=== PATIENT | male | born 1965 | race Caucasian/White ===

== ENCOUNTER 2016-10-12 15:59 | Inpatient (IN) | payer OTHER ==
[2016-10-12] MEDS ORDERED: CLINDAMYCIN IVPB 300 MG in DEXTROSE 5%-WATER - 48 ML IVPB ONE (18:00)
[2016-10-12] MEDS ORDERED: SODIUM CHLORIDE 1,000 ML IV STA (18:02)
[2016-10-12] MEDS ORDERED: CLINDAMYCIN PHOSPHATE 600 MG/4 ML VIAL ONE (18:05)
--- NOTE | 2016-10-12 18:28 | PDOC ---
History of Present Illness - General History Source: Patient Exam Limitations: No Limitations - History of Present Illness Initial Comments: The patient is a 51 yo M with a no significant PMHx who presents with a nasal abscess for 4 days. The patient states his R nostril felt itchy at first and has been getting progressively more tender. He also endorses associated R sided face pain, R upper tooth pain and R sided headache headache. States its like a line down his face that divides the side that hurt and the side that doesnt. The patient endorses associated fever of 99.9 and R eye socket pain. He also notes his R eye has been tearing up all night. The patient denies facial weakness. The patient states he saw Dr. Youngblood today who sent him here for a possible CT scan. Social Hx: Social ETOH, smoker <Casi Fox - Last Filed: 10/12/16 19:11> <Skyla Joya - Last Filed: 10/13/16 03:49> - General Chief Complaint: Edema Stated Complaint: NASAL ABSCESS (PCP SENT) Time Seen by Provider: 10/12/16 17:01 Past History <Casi Fox - Last Filed: 10/12/16 19:11> - Past Medical History Other medical history: denies - Psycho/Social/Smoking Cessation Hx Suicidal Ideation: No Smoking History: Never smoked Hx Alcohol Use: No Drug/Substance Use Hx: No <Skyla Joya - Last Filed: 10/13/16 03:49> - Past Medical History Allergies/Adverse Reactions: Allergies Allergy/AdvReac Type Severity Reaction Status Date / Time No Known Allergies Allergy Verified 10/12/16 16:04 Home Medications: Ambulatory Orders NK [No Known Home Medication] 10/12/16 Review of Systems - Review of Systems Able to Perform ROS?: Yes Comments:: GENERAL/CONSTITUTIONAL: No fever or chills. No weakness. HEAD, EYES, EARS, NOSE AND THROAT: No change in vision. No ear pain or discharge. No sore throat. R sided facial pain. Nasal boil. Eye socket pain. CARDIOVASCULAR: No chest pain or shortness of breath. RESPIRATORY: No cough, wheezing, or hemoptysis. GASTROINTESTINAL: No nausea, vomiting, diarrhea or constipation. GENITOURINARY: No dysuria, frequency, or change in urination. MUSCULOSKELETAL: No joint or muscle swelling or pain. No neck or back pain. SKIN: No rash NEUROLOGIC: No headache, vertigo, loss of consciousness, or change in strength/ sensation. ENDOCRINE: No increased thirst. No abnormal weight change. HEMATOLOGIC/LYMPHATIC: No anemia, easy bleeding, or history of blood clots. ALLERGIC/IMMUNOLOGIC: No hives or skin allergy. <Casi Fox - Last Filed: 10/12/16 19:11> *Physical Exam - Vital Signs Last Vital Signs Temp Pulse Resp BP Pulse Ox 97.9 F 79 19 144/79 98 10/12/16 16:01 10/12/16 16:01 10/12/16 16:01 10/12/16 16:01 10/12/16 16:01 - Physical Exam Comments: GENERAL: Awake, alert, and fully oriented, in no acute distress HEAD: No signs of trauma. EYES: PERRLA, EOMI, sclera anicteric, conjunctiva clear ENT: 1 cm circular erythematous tender papule on inferior R nare. Mild edema and tenderness of R side of face from forehead to jaw. Palpable submandibular lymphadenopathy. No dental abscesses visualized or palpated. Auricles normal inspection, hearing grossly normal, oropharynx clear without exudates. Moist mucosa NECK: Normal ROM, supple, no lymphadenopathy, JVD, or masses LUNGS: Breath sounds equal, clear to auscultation bilaterally. No wheezes, and no crackles HEART: Regular rate and rhythm, normal S1 and S2, no murmurs, rubs or gallops ABDOMEN: Soft, nontender, normoactive bowel sounds. No guarding, no rebound. No masses EXTREMITIES: Normal range of motion, no edema. No clubbing or cyanosis. No cords, erythema, or tenderness NEUROLOGICAL: Cranial nerves II through XII grossly intact. Normal speech, normal gait SKIN: Warm, Dry, normal turgor, no rashes or lesions noted. <Casi Fox - Last Filed: 10/12/16 19:11> - Vital Signs Last Vital Signs Temp Pulse Resp BP Pulse Ox 97.9 F 79 19 144/79 98 10/12/16 16:01 10/12/16 16:01 10/12/16 16:01 10/12/16 16:01 10/12/16 16:01 <Skyla Joya - Last Filed: 10/13/16 03:49> ED Treatment Course - LABORATORY CBC & Chemistry Diagram: 10/12/16 18:21 10/12/16 18:21 - ADDITIONAL ORDERS Additional order review: Laboratory Results 10/12/16 18:21 Sodium 138 Potassium 4.4 Chloride 105 Carbon Dioxide 26 Anion Gap 7 L BUN 16 Creatinine 1.0 Creat Clearance w eGFR > 60 Random Glucose 86 Calcium 9.4 Total Bilirubin 0.7 AST 19 ALT 21 Alkaline Phosphatase 70 Total Protein 7.5 Albumin 4.0 10/12/16 18:21 RBC 5.08 MCV 90.4 MCHC 33.3 RDW 13.3 MPV 11.9 H Neutrophils % 64.5 Lymphocytes % 26.2 Monocytes % 8.2 Eosinophils % 0.6 Basophils % 0.5 - Medications Given in the ED: ED Medications Discontinued Medications Generic Name Dose Route Start Last Admin Trade Name Freq PRN Reason Stop Dose Admin Clindamycin Phosphate 300 mg/ 50 mls @ 100 mls/hr 10/12/16 18:00 10/12/16 18:21 Dextrose IVPB 10/12/16 18:29 100 mls/hr ONCE ONE Administration Sodium Chloride 1,000 mls @ 1,000 mls/hr 10/12/16 18:02 10/12/16 18:21 Normal Saline - IV 10/12/16 19:01 1,000 mls/hr ASDIR STA Administration <Casi Fox - Last Filed: 10/12/16 19:11> - LABORATORY CBC & Chemistry Diagram: 10/12/16 18:21 10/12/16 18:21 - RADIOLOGY Radiology Studies Ordered: Category Date Time Status FACIAL BONES CT W/O CONTRAST [CT] Stat CT Scan 10/12/16 17:57 Ordered <Skyla Joya - Last Filed: 10/13/16 03:49> Medical Decision Making - Medical Decision Making 10/12/16 18:24 51yo with no PMH presents with erythema, pain and swelling to his nose, with new swelling and pain spreading to his forehead, cheek, and jaw concerning for facial cellulitis. Pt also with low grade fever to 99.9 at home. Will image to evaluate for facial or orbital collections. Spoke with radiology who recommends non con CT of the facial bones. Also spoke with PCP Dr. Olivia Youngblood (pager )who agrees with plan and had the same concerns about facial cellulitis -cbc, bmp -ct facial bones -IV clinda -consider obs admission given rapid spread of infection since Sunday Vital Signs Temp Pulse Resp BP Pulse Ox 97.9 F 79 19 144/79 98 10/12/16 16:01 10/12/16 16:01 10/12/16 16:01 10/12/16 16:01 10/12/16 16:01 10/12/16 18:31 10/12/16 19:25 CT facial bones with R periorbital swelling consistent with pre-septal cellulitis. Report also with R mastoid effusion. On exam, pt with no mastoid tenderness to palpation or induration. Will admit to obs for monitoring and Q8hr clinda to ensure clinical improvement. -admit to hosp -continue clinda 10/13/16 03:48 <Skyla Joya - Last Filed: 10/13/16 03:49> *DC/Admit/Observation/Transfer - Attestations Scribe Attestion: Documentation prepared by Casi Fox, acting as medical laboratory manager for Skyla Joya MD, /DO. <Casi Fox - Last Filed: 10/12/16 19:11> - Discharge Dispostion Admit: Yes - Attestations Physician Attestion: 10/12/16 19:30 I, Dr. Skyla Joya MD, attest that this document has been prepared under my direction and personally reviewed by me in its entirety. I further attest, that it accurately reflects all work, treatment, procedures and medical decision -making performed by me. 10/12/16 20:08 <Skyla Joya - Last Filed: 10/13/16 03:49> Diagnosis at time of Disposition: Cellulitis Qualifiers: Site of cellulitis: face Qualified Code(s): L03.211 - Cellulitis of face - Referrals
[2016-10-12 18:30] LABS: BASOPHIL 0.5 % (0-2.0); EOSINOPHIL 0.6 % (0-4.5); MCH 30.1 pg (25.7-33.7); MCHC 33.3 g/dl (32.0-35.9); MEAN CELL VOLUME 90.4 fl (80-96); MEAN PLT VOLUME 11.9 fl (7.5-11.1); NEUTROPHILS 64.5 % (42.8-82.8); PLATELET COUNT 148 K/MM3 (134-434); RDW 13.3 % (11.9-15.9); WHITE BLOOD COUNT 8.5 K/mm3 (4.0-10.0)
[2016-10-12 18:53] LABS: ANION GAP 7 (8-16); CALCIUM 9.4 mg/dL (8.5-10.1); CO2 26 mmol/L (21-32); GLUCOSE,RANDOM 86 mg/dL (74-106); SGPT/ALT 21 U/L (12-78)
[2016-10-12 18:55] LABS: ALK PHOS 70 U/L (45-117); BILIRUBIN,TOTAL 0.7 mg/dL (0.2-1.0); TOT PROT 7.5 g/dl (6.4-8.2)
[2016-10-12 18:56] LABS: SGOT/AST 19 U/L (15-37)
[2016-10-12] MEDS ORDERED: ONDANSETRON 4 MG/2 ML VIAL IVPB PRN (19:56)
--- NOTE | 2016-10-12 20:23 | HP ---
CHIEF COMPLAINT: R facial swelling and R nasal erythema PCP: HISTORY OF PRESENT ILLNESS: 51 yo M with no significant past medical history c/o R nose edema and abscess for the past 4 days. Pt states four days ago he began to feel what he thought to be a pimple in his nose, but progressively increased in tenderness with digitation. He also reports that 2 days ago he started to develop R nose edema, subjective fevers, and right nostril reddening. He describes the feeling of "a line down the middle of his face" delineating the R side swelling. He was sent here by Dr. Youngblood for a possible CT of the face and sinuses. Currently he reports a headache, some ear discomfort, and increase of tearing of his R eye ( without pus noted) in addition to his other symptoms. Pt denies any history of sinusitis, chills, visual changes, changes in hearing, SOB, difficulty swallowing, sore throat, rhinorrhea. ER course was notable for: (1) IV clindamycin given (2) CT face and sinus -- mild right periorbital soft tissue swelling extending to supraorbital margin. Chronic maxillary sinusitis. Hypertrophy of R nasal cavity. R mastoid effusion. Recent Travel: Denies PAST MEDICAL HISTORY: Denies PAST SURGICAL HISTORY: Denies Social History: Smoking: No Alcohol: Socially Drugs: No Family History: Deferred Allergies No Known Allergies Allergy (Verified 10/12/16 16:04) HOME MEDICATIONS: Home Medications Medication Instructions Recorded NK [No Known Home Medication] 10/12/16 REVIEW OF SYSTEMS CONSTITUTIONAL: Present: Subjective fever Absent: chills, diaphoresis, generalized weakness, malaise, loss of appetite, weight change HEENT: Present: Nasal swelling, Ear discomfort, increased tearing of R eye, R nostril erythema and r nasal cavity abscess Absent: rhinorrhea, throat pain, throat swelling, difficulty swallowing, eye pain, visual changes CARDIOVASCULAR: Absent: chest pain, syncope, palpitations, irregular heart rate, lightheadedness , peripheral edema RESPIRATORY: Absent: cough, shortness of breath, dyspnea with exertion, orthopnea, wheezing, stridor, hemoptysis GASTROINTESTINAL: Absent: abdominal pain, abdominal distension, nausea, vomiting, diarrhea, constipation, melena, hematochezia SKIN: Present: Erythema of R facial aspect Absent: itching, pallor NEUROLOGIC: Present: Headache Absent: focal weakness or paresthesias, dizziness, unsteady gait, seizure, mental status changes, bladder or bowel incontinence PSYCHIATRIC: Absent: anxiety, depression, suicidal or homicidal ideation, hallucinations. PHYSICAL EXAMINATION Vital Signs - 24 hr 10/12/16 10/12/16 16:01 19:36 Temperature 97.9 F 98.3 F Pulse Rate 79 Pulse Rate [ 78 Left Radial] Respiratory 19 18 Rate Blood Pressure 144/79 Blood Pressure 137/94 [Right Arm] O2 Sat by Pulse 98 100 Oximetry (%) GENERAL: Awake, alert, and fully oriented, in no acute distress. HEAD: Normal with no signs of trauma. EYES: Pupils equal, round and reactive to light, extraocular movements intact, sclera anicteric, conjunctiva clear. EARS, NOSE, THROAT: R TM erythema noted without any perforation or purulence. L TM obstructed by cerumen. Nares patent, R nasal cavity abscess with purulence emanating from focal point. R Nostril erythema w/ sharply demarcated borders. R inferior orbital edema without erythema. Oropharynx clear without exudates. Moist mucous membranes. NECK: Normal range of motion, supple without lymphadenopathy, JVD, or masses. LUNGS: Breath sounds equal, clear to auscultation bilaterally. No wheezes, and no crackles. No accessory muscle use. HEART: Regular rate and rhythm, normal S1 and S2 without murmur, rub or gallop. MUSCULOSKELETAL: Normal range of motion at all joints. No bony deformities or tenderness. No CVA tenderness. eXTREMITIES: No edema, peripheral pulses intact throughout NEUROLOGICAL: Normal speech. Peripheral visual espinosa intact. PSYCHIATRIC: Cooperative. Appropriate mood and affect. Laboratory Results - last 24 hr 10/12/16 10/12/16 18:21 18:21 WBC 8.5 RBC 5.08 Hgb 15.3 Hct 46.0 MCV 90.4 MCH 30.1 MCHC 33.3 RDW 13.3 Plt Count 148 MPV 11.9 H Neutrophils % 64.5 Lymphocytes % 26.2 Monocytes % 8.2 Eosinophils % 0.6 Basophils % 0.5 Sodium 138 Potassium 4.4 Chloride 105 Carbon Dioxide 26 Anion Gap 7 L BUN 16 Creatinine 1.0 Creat Clearance w eGFR > 60 Random Glucose 86 Calcium 9.4 Total Bilirubin 0.7 AST 19 ALT 21 Alkaline Phosphatase 70 Total Protein 7.5 Albumin 4.0 ASSESSMENT/PLAN: 51 yo M with R nasal abscess and periorbital edema. CT face and sinuses and IV clindamycin done in ED. Cx swab of nasal abscess taken. 1) R facial cellulitis and R mastoiditis secondary to nasal abscess --AVSS and CBC WNL without leukocytosis --CT: mild right periorbital soft tissue swelling extending to supraorbital margin. Chronic maxillary sinusitis. Hypertrophy of R nasal cavity. R mastoid effusion. --Culture of abscess taken; will f/u --Clindamycin 300mg q6 IV --PRN Tylenol 650mg PO on board if fever develops FEN: Fluids: NS with IV Clindamycin PB Electrolytes: No electrolyte abnormalities at this time Nutrition: Full diet Dispo: Given CT showing R mastoiditis and periorbital soft tissue edema will place in OBS Visit type - Emergency Visit Emergency Visit: Yes Care time: The patient presented to the Emergency Department on the above date and was hospitalized for further evaluation of their emergent condition. - New Patient This patient is new to me today: Yes Date on this admission: 10/12/16 - Critical Care Critical Care patient: No
--- NOTE | 2016-10-12 20:49 | PN ---
Teaching Attending Note Name of Resident: Gaurav Anaya ATTENDING PHYSICIAN STATEMENT I saw and evaluated the patient. I reviewed the resident's note and discussed the case with the resident. I agree with the resident's findings and plan as documented. SUBJECTIVE: 51 y/o Male presented to ED c/o right nare swelling since Sunday with pain periorbitally and purulent drainage from bump in his nose. Denies fever, chills , headache, h/o siniusitis or DM2. OBJECTIVE: GEn: Afebrile, in NAD, A&Ox3 HEENT: right nare with erythema at distal aspect and internal mucosa with purulent drainage from abcess. no palpable orbital edema. tenderness behind right ear lobe over mastoid process. Normal oral mucosa. CVS: RRR Lungs: CTA Abd: Soft, NT, BS+ Ext: nl pulses, nl ROM CBCD WBC 8.5 K/mm3 (4.0-10.0) 10/12/16 18:21 RBC 5.08 M/mm3 (4.00-5.60) 10/12/16 18:21 Hgb 15.3 GM/dL (11.7-16.9) 10/12/16 18:21 Hct 46.0 % (35.4-49) 10/12/16 18:21 MCV 90.4 fl (80-96) 10/12/16 18:21 MCHC 33.3 g/dl (32.0-35.9) 10/12/16 18:21 RDW 13.3 % (11.9-15.9) 10/12/16 18:21 Plt Count 148 K/MM3 (134-434) 10/12/16 18:21 MPV 11.9 fl (7.5-11.1) H 10/12/16 18:21 CMP Sodium 138 mmol/L (136-145) 10/12/16 18:21 Potassium 4.4 mmol/L (3.5-5.1) 10/12/16 18:21 Chloride 105 mmol/L (98-107) 10/12/16 18:21 Carbon Dioxide 26 mmol/L (21-32) 10/12/16 18:21 Anion Gap 7 (8-16) L 10/12/16 18:21 BUN 16 mg/dL (7-18) 10/12/16 18:21 Creatinine 1.0 mg/dL (0.7-1.3) 10/12/16 18:21 Creat Clearance w eGFR > 60 (>60) 10/12/16 18:21 Random Glucose 86 mg/dL (74-106) 10/12/16 18:21 Calcium 9.4 mg/dL (8.5-10.1) 10/12/16 18:21 Total Bilirubin 0.7 mg/dL (0.2-1.0) 10/12/16 18:21 AST 19 U/L (15-37) 10/12/16 18:21 ALT 21 U/L (12-78) 10/12/16 18:21 Alkaline Phosphatase 70 U/L (45-117) 10/12/16 18:21 Total Protein 7.5 g/dl (6.4-8.2) 10/12/16 18:21 Albumin 4.0 g/dl (3.4-5.0) 10/12/16 18:21 CT head: periobital soft tissue swelling and right mastoiditis. ASSESSMENT AND PLAN: Nasal abcess and cellulitis- Clindamycin 300mg IVPB Q6h, Tylenol PRN for pain, ENT consult in am, follow wound cultures, and repeat CBC in AM. Get HgbA1c.
[2016-10-12] MEDS: CLINDAMYCIN 300 MG PREMIX IVPB 50 ML IVPB SCH (21:09)
[2016-10-12 23:22] VITALS: BMI 28.7
[2016-10-12] MEDS ORDERED: PT OWN MED DRAWER 7, Y5N ONE (23:42)
[2016-10-13] MEDS ORDERED: PT OWN MED DRAWER 7, Y5N ONE (02:31)
[2016-10-13] MEDS: ACETAMINOPHEN 325 MG TABLET (FP) PO PRN ×3 (02:33→17:34)
[2016-10-13] MEDS: CLINDAMYCIN 300 MG PREMIX IVPB 50 ML IVPB SCH (02:49)
--- NOTE | 2016-10-13 07:47 | PN ---
Physical Exam: SUBJECTIVE: Patient seen and examined sitting on edge of bed. Right-sided face pain. OBJECTIVE: Vital Signs Period Temp Pulse Resp BP Sys/Galo Pulse Ox Last 24 Hr 97.8 F-98.4 F 70-94 18-18 111-155/48-97 96-97 GENERAL: The patient is awake, alert, and fully oriented, in mild distress secondary to pain. HEAD: Normal with no signs of trauma. EYES: tearing from right eye ENT: Abscess right nare, interior nare appears pus-filled, exquisitely tender NECK: Trachea midline, full range of motion, supple. LUNGS: Breath sounds equal, clear to auscultation bilaterally, no wheezes, no crackles, no accessory muscle use. HEART: Regular rate and rhythm, S1, S2 without murmur, rub or gallop. ABDOMEN: Soft, nontender, nondistended, normoactive bowel sounds, no guarding, no rebound EXTREMITIES: 2+ pulses, warm, well-perfused, no edema. NEUROLOGICAL: Cranial nerves II through XII grossly intact. Normal speech, gait not observed. Current Medications Generic Name Dose Route Start Last Admin Trade Name Freq PRN Reason Stop Dose Admin Acetaminophen 650 mg 10/12/16 19:56 10/13/16 11:28 Tylenol - PO 650 mg Q4H PRN Administration FEVER OR PAIN Acetaminophen 650 mg 10/13/16 11:23 Tylenol - PO 10/13/16 11:24 ONCE STA Vancomycin HCl 1,500 mg/ 500 mls @ 250 mls/hr 10/13/16 10:00 10/13/16 11:28 Dextrose IVPB 250 mls/hr BID MICHOACANO Administration Protocol Ondansetron HCl 4 mg 10/12/16 19:56 Zofran Injection IVPB Q6H PRN NAUSEA ASSESSMENT/PLAN 51 year-old male with no significant PMH admitted for nasal cavity abscess, right facial cellulities, and right mastoiditis. Right facial cellulitis and Right mastoiditis secondary to nasal abscess --afebrile, no leukocytosis --CT: mild right periorbital soft tissue swelling extending to supraorbital margin; chronic maxillary sinusitis; hypertrophy of right nasal cavity; right mastoid effusion --Culture of abscess taken --Clindamycin IV and Vanc --PRN Tylenol --ID following --ENT consult for abscess drainage FEN: Fluids: PO intake adequate Electrolytes: replete as indicated Nutrition: regular diet Dispo: continues to require inpatient care. Full code. Visit type - Emergency Visit Emergency Visit: Yes ED Registration Date: 10/13/16 Care time: The patient presented to the Emergency Department on the above date and was hospitalized for further evaluation of their emergent condition. - New Patient This patient is new to me today: Yes Date on this admission: 10/13/16 - Critical Care Critical Care patient: No
--- NOTE | 2016-10-13 08:26 | PN ---
Progress Note, Physician Chief Complaint: ID Full note dictated - Current Medication List Current Medications: Active Medications Acetaminophen (Tylenol -) 650 mg PO Q4H PRN PRN Reason: FEVER OR PAIN Last Admin: 10/13/16 02:33 Dose: 650 mg Clindamycin Phosphate (Cleocin 300 Mg Premix Ivpb) 50 mls @ 100 mls/hr IVPB Q6H -IV MICHOACANO Last Admin: 10/13/16 02:49 Dose: 100 mls/hr Ondansetron HCl (Zofran Injection) 4 mg IVPB Q6H PRN PRN Reason: NAUSEA - Objective Vital Signs: Vital Signs Temperature 97.8 F 10/13/16 05:54 Pulse Rate 70 10/13/16 05:54 Respiratory Rate 18 10/13/16 05:54 Blood Pressure 111/48 10/13/16 05:54 O2 Sat by Pulse Oximetry (%) 97 10/13/16 03:45 Problem List - Problems (1) Facial cellulitis Code(s): L03.211 - CELLULITIS OF FACE Assessment/Plan Microbiology Laboratory Tests 10/12/16 18:21 WBC 8.5 Hgb 15.3 Plt Count 148 Assessment Facial cellultis nose and malar area Drainage inside the nose Plan Vancomycin 1.5 gr q 12H ENT evaluation ? drainaage Warm compresses Jennifer STAFFORD
--- NOTE | 2016-10-13 09:11 | CONS ---
DATE OF CONSULTATION: DATE OF DICTATION: 10/13/2016 HISTORY OF PRESENT ILLNESS: This is a 51-year-old white male who was admitted with the chief complaint of right lateral and inner naris tenderness with drainage for 4 days. He was unclear as to why or how this may have started. He noted increasing tenderness on the inside of his nose. He may have had low-grade fever but denied any chills. He was referred by his primary doctor for a CT scan of the face. He is not diabetic and denies prior medical illness. He was given clindamycin in the emergency room. A CT scan of the sinus showed mild right periorbital soft tissue swelling extending to the supraorbital margin, chronic maxillary sinusitis was seen, and a right mastoid effusion. PAST MEDICAL HISTORY: Negative. MEDICATIONS: None. SOCIAL HISTORY: Nonsmoker. Works in the construction industry. No travel. No pets. No unusual hobbies. No drug use. HIV status unknown. FAMILY HISTORY: Reviewed and noncontributory. REVIEW OF SYSTEMS:Respiratory: No cough or shortness of breath. Cardiac: No chest pain, palpitations, history of murmur. Gastrointestinal: No nausea, vomiting, diarrhea, or weight loss. Genitourinary: No dysuria, hematuria. PHYSICAL EXAMINATION:General: He was a well-nourished appearing male in no acute distress. Vital Signs: Temperature 97.8, pulse 70, blood pressure 111/48, respirations 18. Neck: Supple. Lungs: Clear to P and A. Heart: S1, S2, regular rhythm. Abdomen: Soft, nontender, without organomegaly. Extremities: Without clubbing, cyanosis, or edema. HEENT: Revealed swelling of the right naris extending into the right malar area with tenderness and possible fluctuance. On the inside of the nose, I could see an open draining sore. LABORATORY DATA: Chemistries and CBC within normal limits with the exception of a mildly depressed platelet count of 148. ASSESSMENT: Right facial cellulitis involving the right naris and extending to the inside of his nose with some drainage seen. RECOMMENDATIONS: A wound culture has been obtained. He will be empirically treated with vancomycin 1.5 g q.12, hot compresses applied to the face, and consultation with ENT for possible I & D prior to being discharged. KEYONNA AZAR M.D. [id number]
[2016-10-13] MEDS ORDERED: ACETAMINOPHEN 325 MG TABLET (FP) PO STA (11:23)
[2016-10-13] MEDS: VANCOMYCIN 1,500 MG in DEXTROSE 5%-WATER - 500 ML IVPB SCH ×2 (11:28→21:59)
--- NOTE | 2016-10-13 18:18 | CON.ENT ---
Consult Consult Specialty:: ENT Referred by:: Dr. Rodriguez Reason for Consultation:: facial cellulitis - History of Present Illness Chief Complaint: nasal pain and swelling History of Present Illness: 51 yo M in good health 5 days ago noted irritation in right nostril 3 days ago noted some swelling and pain, worsened presented to ER dx facial cellulitis, CT scan shows no collection gram stain shows staph on Vancomycin notes improvement in symptoms with IV antibiotics denies prior nasal allergies or sinus infections - History Source History Provided By: Patient, Medical Record Limitations to Obtaining History: No Limitations - Alcohol/Substance Use Hx Alcohol Use: No - Smoking History Smoking history: Never smoked Home Medications - Allergies Allergies/Adverse Reactions: Allergies Allergy/AdvReac Type Severity Reaction Status Date / Time No Known Allergies Allergy Verified 10/12/16 16:04 - Home Medications Home Medications: Ambulatory Orders NK [No Known Home Medication] 10/12/16 Family Disease History - Family Disease History Family History: Unremarkable Physical Exam-ENT Vital Signs: Vital Signs Temperature 98.2 F 10/13/16 13:34 Pulse Rate 75 10/13/16 13:34 Respiratory Rate 20 10/13/16 13:34 Blood Pressure 117/77 10/13/16 13:34 O2 Sat by Pulse Oximetry (%) 97 10/13/16 03:45 Constitutional: Yes: Well Nourished, No Distress, Calm Head: Yes: WNL Face: Yes: Other (swelling right, sl tender right cheek, +external nasal swelling) Eyes: Yes: WNL Nose: Yes: Other (external +swelling, tenderness right nasal ala, nostril + vestibular swelling with scab - uncapped, sl bleeding and pus, endoscopy: mild deviation of septum, no polyps, inferior turbinate hypertrophy, middle turbinates and meati WNL, superior turbinates and meati, sphenoethmoid recesses not visible) Nasal Passage: Yes: WNL Oral/Pharynx: Yes: WNL Outer Ear: Yes: WNL Ear Canal: Yes: WNL Tympanic Membrane: Yes: WNL Neck: Yes: WNL Respiratory: Yes: WNL Imaging - Results Cat Scan: Report Reviewed, Image Reviewed Problem List - Problems (1) Facial cellulitis Assessment/Plan: onset 3 days ago after right nasal irritation in nostril, suspect nasal vestibulitis leading to nasal cellulitis staph on gram stain agree with antistaphylococcal antibiotics as ordered local heat elevate head of bed additional chronic sinusitis found on CT scan continue antibiotics nasal mupirocin ointment Code(s): L03.211 - CELLULITIS OF FACE
[2016-10-13] MEDS: MUPIROCIN 2% TOPICAL OINTMENT 22 GM TUBE TP SCH (21:59)
[2016-10-14] MEDS: MUPIROCIN 2% TOPICAL OINTMENT 22 GM TUBE TP SCH (06:44)
[2016-10-14 07:43] LABS: BASOPHIL 0.4 % (0-2.0); EOSINOPHIL 1.6 % (0-4.5); MCH 30.1 pg (25.7-33.7); MCHC 33.4 g/dl (32.0-35.9); MEAN PLT VOLUME 11.9 fl (7.5-11.1); NEUTROPHILS 59.8 % (42.8-82.8); PLATELET COUNT 142 K/MM3 (134-434); RDW 13.4 % (11.9-15.9); WHITE BLOOD COUNT 7.3 K/mm3 (4.0-10.0)
[2016-10-14] MEDS: VANCOMYCIN 1,500 MG in DEXTROSE 5%-WATER - 500 ML IVPB SCH (09:24)
--- NOTE | 2016-10-14 09:29 | PN ---
Progress Note (short form) - Note Progress Note: ID Offers no complaints Vancomycin Seen by ENT Selected Entries 10/13/16 10/14/16 18:00 06:00 Temperature 98.1 F Pulse Rate 77 Respiratory 20 Rate Blood Pressure 112/60 Nares less swollen less inflammed starting to drain Microbiology 10/12/16 20:15 Nose Gram Stain - Final Laboratory Tests 10/12/16 10/14/16 18:21 06:00 WBC 7.3 Hgb 15.4 Hct 46.1 Plt Count 142 BUN 16 Creatinine 1.0 Assessment Cellulitis with abscess staph likely Plan Can discharge Oral clindamycin 450mg tid 5 days Continue with warm soaks Jennifer STAFFORD Problem List - Problems (1) Facial cellulitis Code(s): L03.211 - CELLULITIS OF FACE
--- NOTE | 2016-10-14 11:22 | DS ---
Physical Exam: SUBJECTIVE: Patient seen and examined OBJECTIVE: Vital Signs Period Temp Pulse Resp BP Sys/Galo Pulse Ox Last 24 Hr 98.1 F-98.2 F 75-78 16-20 112-144/60-77 97-97 PHYSICAL EXAM GENERAL: The patient is awake, alert, and fully oriented, in no acute distress. HEAD: Normal with no signs of trauma. EYES: PERRL, extraocular movements intact, sclera anicteric, conjunctiva clear. ENT: Ears normal, nares patent, oropharynx clear without exudates, moist mucous membranes. NECK: Trachea midline, full range of motion, supple. LUNGS: Breath sounds equal, clear to auscultation bilaterally, no wheezes, no crackles, no accessory muscle use. HEART: Regular rate and rhythm, S1, S2 without murmur, rub or gallop. ABDOMEN: Soft, nontender, nondistended, normoactive bowel sounds, no guarding, no rebound, no hepatosplenomegaly, no masses. EXTREMITIES: 2+ pulses, warm, well-perfused, no edema. NEUROLOGICAL: Cranial nerves II through XII grossly intact. Normal speech, gait not observed. PSYCH: Normal mood, normal affect. SKIN: Warm, dry, normal turgor, no rashes or lesions noted. LABS Laboratory Results - last 24 hr 10/14/16 06:00 WBC 7.3 RBC 5.12 Hgb 15.4 Hct 46.1 MCV 90.0 MCH 30.1 MCHC 33.4 RDW 13.4 Plt Count 142 MPV 11.9 H Neutrophils % 59.8 Lymphocytes % 28.2 Monocytes % 10.0 Eosinophils % 1.6 D Basophils % 0.4 HOSPITAL COURSE: Date of Admission:10/13/16 Date of Discharge: 10/14/16 Discharge Summary Reason For Visit: CELLULITIS Current Active Problems Cellulitis (Acute) Facial cellulitis (Acute) Condition: Improved - Instructions Diet, Activity, Other Instructions: A prescription has been sent to your pharmacy for clindamycin. Take this medication as directed and be sure to finish all the medication. You may want to follow up with two physicians who saw you in the hospital: Dr. Maxwell Rodriguez (infectious disease) and Dr. Gaurav Ugarte (ENT). Their contact information is enclosed in this discharge packet. Return to the emergency department for any new or worsening symptoms. Referrals: Maxwell Rodriguez MD [Staff Physician] - 1 Week Olivia Youngblood MD [Primary Care Provider] - Gaurav Ugarte MD [Staff Physician] - 1 Week Disposition: HOME - Home Medications Comprehensive Discharge Medication List: Ambulatory Orders Clindamycin [Cleocin -] 450 mg PO TID #45 capsule 10/14/16
[2016-10-14 13:02] VITALS: BP 113/67; PULSE 80; TEMP 98.6
== END 2016-10-14 14:32 | disposition home or self-care (01) | DRG 603 ==
LOC: JER 15:59 → JERBED 20:08 → J7W 23:08 → OBSVTOIN 10-13 11:10
PROVIDERS: ADMIT Internal Medicine; ATTEND Nurse Practitioner Acute Care
DX: L03.211 Cellulitis of face (principal); J32.0 Chronic maxillary sinusitis; H70.891 Other mastoiditis and related conditions, right ear; H61.22 Impacted cerumen, left ear
CPT/HCPCS: 36415; 70486-TC; 80053; 85025; 87070; 87186; 87205; 99285-25; G0378

== ENCOUNTER 2016-10-23 03:46 | Emergency (ER) | payer OTHER ==
[2016-10-23 04:44] VITALS: TEMP 97.8; BMI 28.7
--- NOTE | 2016-10-23 05:03 | PDOC ---
History of Present Illness - General History Source: Patient Exam Limitations: No Limitations - History of Present Illness Initial Comments: 10/23/16 05:10 The patient is a 51 year old male, with no significant past medical history, who presents to the emergency department with back pain prior to arrival. The patient describes the back pain as diffuse, constant, 10/10 in severity, and worse while sitting. The patient reports he experienced similar symptoms one day ago at night, however, the symptoms resolved by morning. The patient reports he recently visited [facility] for a Staph Infection approx. one week ago and was prescribed clindamycin. Patient denies numbness, loss of sensation, weakness. He denies any recent nausea, vomit, diarrhea or constipation. He denies any recent chest pain or shortness of breath. He denies any recent fevers, chills, headache or dizziness. He denies any recent dysuria, frequency, urgency or hematuria. Allergies: NKA Past surgical history: None reported. <Israel Guillermo - Last Filed: 10/23/16 05:46> <Patrica Rashid - Last Filed: 10/30/16 17:21> - General Chief Complaint: Pain Stated Complaint: BACK PAIN Time Seen by Provider: 10/23/16 04:49 Past History <Israel Guillermo - Last Filed: 10/23/16 05:46> - Past Medical History Other medical history: Pt denies - Psycho/Social/Smoking Cessation Hx Suicidal Ideation: No Smoking History: Never smoked Number of Cigarettes Smoked Daily: 10 Information on smoking cessation initiated: No Hx Alcohol Use: No Drug/Substance Use Hx: No Substance Use Type: None Hx Substance Use Treatment: No <Patrica Rashid - Last Filed: 10/30/16 17:21> - Past Medical History Allergies/Adverse Reactions: Allergies Allergy/AdvReac Type Severity Reaction Status Date / Time No Known Allergies Allergy Verified 10/23/16 04:40 Home Medications: Ambulatory Orders Clindamycin [Cleocin -] 450 mg PO TID #45 capsule 10/14/16 Review of Systems - Review of Systems Able to Perform ROS?: Yes Comments:: 10/23/16 05:12 GENERAL/CONSTITUTIONAL: No fever or chills. No weakness. HEAD, EYES, EARS, NOSE AND THROAT: No change in vision. No ear pain or discharge. No sore throat. CARDIOVASCULAR: No chest pain or shortness of breath. RESPIRATORY: No cough, wheezing, or hemoptysis. GASTROINTESTINAL: No nausea, vomiting, diarrhea or constipation. GENITOURINARY: No dysuria, frequency, or change in urination. MUSCULOSKELETAL: +Back Pain. No joint or muscle swelling or pain. SKIN: No rash NEUROLOGIC: No headache, vertigo, loss of consciousness, or change in strength/ sensation. ENDOCRINE: No increased thirst. No abnormal weight change. HEMATOLOGIC/LYMPHATIC: No anemia, easy bleeding, or history of blood clots. ALLERGIC/IMMUNOLOGIC: No hives or skin allergy. <Israel Guillermo - Last Filed: 10/23/16 05:46> *Physical Exam - Vital Signs Last Vital Signs Temp Pulse Resp BP Pulse Ox 97.8 F 74 18 128/87 99 10/23/16 04:41 10/23/16 04:41 10/23/16 04:41 10/23/16 04:41 10/23/16 04:41 - Physical Exam Comments: 10/23/16 05:12 GENERAL: +Appears uncomfortable. Awake, alert, and fully oriented. HEAD: No signs of trauma EYES: PERRLA, EOMI, sclera anicteric, conjunctiva clear ENT: Auricles normal inspection, hearing grossly normal, nares patent, oropharynx clear without exudates. Moist mucosa NECK: Normal ROM, supple, no lymphadenopathy, JVD, or masses LUNGS: Breath sounds equal, clear to auscultation bilaterally. No wheezes, and no crackles HEART: Regular rate and rhythm, normal S1 and S2, no murmurs, rubs or gallops ABDOMEN: Soft, nontender, normoactive bowel sounds. No guarding, no rebound. No masses EXTREMITIES: +Right anterior thigh with large healing ecchymosis tender to palpation. Normal range of motion, no edema. No clubbing or cyanosis. No cords, erythema. NEUROLOGICAL: Cranial nerves II through XII grossly intact. Normal speech, normal gait SKIN: Warm, Dry, normal turgor, no rashes or lesions noted. Back: +CVA tenderness bilaterally. <Israel Guillermo - Last Filed: 10/23/16 05:46> - Vital Signs Last Vital Signs Temp Pulse Resp BP Pulse Ox 97.8 F 74 18 128/87 99 10/23/16 04:41 10/23/16 04:41 10/23/16 04:41 10/23/16 04:41 10/23/16 04:41 <Patrica Rashid - Last Filed: 10/30/16 17:21> ED Treatment Course - LABORATORY CBC & Chemistry Diagram: 10/23/16 05:20 10/23/16 05:20 <Israel Guillermo - Last Filed: 10/23/16 05:46> - LABORATORY CBC & Chemistry Diagram: 10/23/16 05:20 10/23/16 05:20 <Patrica Rashid - Last Filed: 10/30/16 17:21> Medical Decision Making - Medical Decision Making Pt presents with B/L low back pain, unable to find a comfortable position on initial evaluation. He was concerned it was related to recent treatment for cellulitis, as he was called back earlier today to have his antibiotic changed. However, the symptoms of the cellulitis have improved, he has no facial rash or swelling, and there is no anatomic connection to the location of the pain. Would consider that either this is musculoskeletal in nature or is a kidney stone. Will obtain imaging, labs, UA. <Patrica Rashid - Last Filed: 10/30/16 17:21> *DC/Admit/Observation/Transfer - Attestations Scribe Attestion: 10/23/16 05:32 Documentation prepared by Israel Guillermo, acting as medical assistant per diem for Patrica Rashid MD. <Israel Guillermo - Last Filed: 10/23/16 05:46> <Patrica Rashid - Last Filed: 10/30/16 17:21> Diagnosis at time of Disposition: Low back strain - Patient Instructions Printed Discharge Instructions: DI for Back Strain or Sprain Additional Instructions: Thank you for trusting us with your health care today. Often in the emergency department we do not find the exact cause of a problem but focus on ruling out serious problems. The lab work and imaging we performed today did not show anything that was concerning. However, it is important that you follow up with a primary care physician for a more complete workup than we are able to do in the emergency department. To find a PCP you can call your insurance company or you can call our project management professional doctor, Dr. Pinto at ([phone]). As we discussed, you can take over the counter ibuprofen for the pain. If you develop any concerning signs including fever, confusion, headache that will not resolve with medication or significantly worsening back and neck pain, please return to the emergency department or call 911 immediately.
[2016-10-23] MEDS ORDERED: SODIUM CHLORIDE 1,000 ML IV STA (05:04)
[2016-10-23] MEDS ORDERED: KETOROLAC TROMETHAMINE 30 MG/1 ML VIAL IVPUSH ONE (05:04)
[2016-10-23] MEDS ORDERED: KETOROLAC TROMETHAMINE 30 MG/1 ML VIAL ONE (05:12)
[2016-10-23 05:31] LABS: BASOPHIL 0.4 % (0-2.0); EOSINOPHIL 1.1 % (0-4.5); MCH 30.6 pg (25.7-33.7); MCHC 33.7 g/dl (32.0-35.9); MEAN CELL VOLUME 90.8 fl (80-96); MEAN PLT VOLUME 12.7 fl (7.5-11.1); NEUTROPHILS 56.6 % (42.8-82.8); PLATELET COUNT 153 K/MM3 (134-434); RDW 13.1 % (11.9-15.9); WHITE BLOOD COUNT 6.4 K/mm3 (4.0-10.0)
[2016-10-23 05:54] LABS: ALBUMIN 4.1 g/dl (3.4-5.0); ANION GAP 6 (8-16); BILIRUBIN,TOTAL 0.4 mg/dL (0.2-1.0); CALCIUM 9.6 mg/dL (8.5-10.1); CO2 27 mmol/L (21-32); GLUCOSE,RANDOM 99 mg/dL (74-106); SGOT/AST 16 U/L (15-37); SGPT/ALT 30 U/L (12-78); TOT PROT 7.3 g/dl (6.4-8.2)
[2016-10-23 05:55] LABS: ALK PHOS 72 U/L (45-117)
[2016-10-23 07:44] LABS: URINE APPEARANCE CLEAR; URINE BILIRUBIN NEGATIVE (NEGATIVE); URINE BLOOD NEGATIVE (NEGATIVE); URINE COLOR LT. YELLOW; URINE GLUCOSE (UA) NEGATIVE (NEGATIVE); URINE KETONE NEGATIVE (NEGATIVE); URINE LEUK ESTERASE NEGATIVE (NEGATIVE); URINE NITRITE NEGATIVE (NEGATIVE); URINE PROTEIN NEGATIVE (NEGATIVE); URINE UROBILINOGEN 0.2 mg/dL (0.2-1.0)
--- NOTE | 2016-10-23 07:46 | PDOC ---
*Physical Exam - Vital Signs Last Vital Signs Temp Pulse Resp BP Pulse Ox 97.8 F 74 18 128/87 99 10/23/16 04:41 10/23/16 04:41 10/23/16 04:41 10/23/16 04:41 10/23/16 04:41 - Physical Exam General Appearance: Yes: Nourished, Appropriately Dressed, Apparent Distress HEENT: positive: EOMI, Normal ENT Inspection, Other (Small bump on right external nare, no surrounding erythema, turbinates pink, moist and non edematous ). negative: Nasal Congestion, Rhinorrhea Neck: positive: Supple. negative: Lymphadenopathy (R), Lymphadenopathy (L) Respiratory/Chest: positive: Lungs Clear, Normal Breath Sounds. negative: Respiratory Distress, Rales, Rhonchi, Wheezing Cardiovascular: positive: Regular Rhythm, Regular Rate Gastrointestinal/Abdominal: positive: Normal Bowel Sounds, Flat, Soft. negative : Tender, Distended Musculoskeletal: positive: Normal Inspection, Vertebral Tenderness (When bending , not on palpation) Extremity: positive: Normal Inspection, Normal Range of Motion Integumentary: positive: Ecchymosis (Healing abrasion/ecchymosis to right medial thigh ([id number]) and left posterior thigh ([id number]), ecchimosis to right AC consistent with old IV) Neurologic: positive: loan teller II-XII NML intact, Fully Oriented, Alert, Normal Mood/ Affect, Normal Response, Motor Strength 5/5 ED Treatment Course - LABORATORY CBC & Chemistry Diagram: 10/23/16 05:20 10/23/16 05:20 - ADDITIONAL ORDERS Additional order review: Laboratory Results 10/23/16 05:20 Sodium 141 Potassium 4.5 Chloride 108 H Carbon Dioxide 27 Anion Gap 6 L BUN 18 Creatinine 1.0 Creat Clearance w eGFR > 60 Random Glucose 99 Calcium 9.6 Total Bilirubin 0.4 D AST 16 ALT 30 D Alkaline Phosphatase 72 Total Protein 7.3 Albumin 4.1 10/23/16 05:20 RBC 4.96 MCV 90.8 MCHC 33.7 RDW 13.1 MPV 12.7 H Neutrophils % 56.6 Lymphocytes % 32.7 Monocytes % 9.2 Eosinophils % 1.1 Basophils % 0.4 - Medications Given in the ED: ED Medications Discontinued Medications Generic Name Dose Route Start Last Admin Trade Name Freq PRN Reason Stop Dose Admin Sodium Chloride 1,000 mls @ 1,000 mls/hr 10/23/16 05:04 10/23/16 05:26 Normal Saline - IV 10/23/16 06:03 1,000 mls/hr ASDIR STA Administration Ketorolac Tromethamine 30 mg 10/23/16 05:04 10/23/16 05:26 Toradol Injection - IVPUSH 10/23/16 05:05 30 mg ONCE ONE Administration Progress Note - Progress Note Progress Note: Patient is a stable 51 year old male sign-out from Dr. Rashid who is presenting with back pain, headache and a stiff neck of one day. Patient was recently treated in the hospital for cellulites to the right face and discharged on abx that was changed after sensitivities from cultures returned. During that time, patient had developed a low back pain while sleeping and was concerned this may be related. Patient denies history of back pain, trauma or any known inciting incident. Also denies fever, chills, congestion and runny nose but endorses an associated headache and neck stiffness. Patient found to have varicose veins on exam Pending: UA and doppler Medical Decision Making - Medical Decision Making 51 yo male with recent history of facial cellulitis presenting with headache, neck and back pain and bruising to legs. Ddx includes but is not limited to sinus infection/abscess, back strain/MS, meningitis, disk herniation, renal colic, bleeding diathesis Patient claims the bruising has been occurring for over a year reducing concern for an acute pathology. Bruises also appeared to be well healing. Patient has no neurological deficits and is afebrile, diminishing concern for cord compression or infection. Pain resolves with Toradol supporting MS or renal colic. CT negative for renal stones or obstruction 10/23/16 09:26 CBC WBC 6.4 K/mm3 (4.0-10.0) 10/23/16 05:20 RBC 4.96 M/mm3 (4.00-5.60) 10/23/16 05:20 Hgb 15.2 GM/dL (11.7-16.9) 10/23/16 05:20 Hct 45.1 % (35.4-49) 10/23/16 05:20 MCV 90.8 fl (80-96) 10/23/16 05:20 MCH 30.6 pg (25.7-33.7) 10/23/16 05:20 MCHC 33.7 g/dl (32.0-35.9) 10/23/16 05:20 RDW 13.1 % (11.9-15.9) 10/23/16 05:20 Plt Count 153 K/MM3 (134-434) 10/23/16 05:20 MPV 12.7 fl (7.5-11.1) H 10/23/16 05:20 Neutrophils % 56.6 % (42.8-82.8) 10/23/16 05:20 Lymphocytes % 32.7 % (8-40) 10/23/16 05:20 Monocytes % 9.2 % (3.8-10.2) 10/23/16 05:20 Eosinophils % 1.1 % (0-4.5) 10/23/16 05:20 Basophils % 0.4 % (0-2.0) 10/23/16 05:20 Grossly within normal limits, non concerning for infection or hemotologic abnormalities. Normal platelet count. CMP Sodium 141 mmol/L (136-145) 10/23/16 05:20 Potassium 4.5 mmol/L (3.5-5.1) 10/23/16 05:20 Chloride 108 mmol/L (98-107) H 10/23/16 05:20 Carbon Dioxide 27 mmol/L (21-32) 10/23/16 05:20 Anion Gap 6 (8-16) L 10/23/16 05:20 BUN 18 mg/dL (7-18) 10/23/16 05:20 Creatinine 1.0 mg/dL (0.7-1.3) 10/23/16 05:20 Creat Clearance w eGFR > 60 (>60) 10/23/16 05:20 Random Glucose 99 mg/dL (74-106) 10/23/16 05:20 Calcium 9.6 mg/dL (8.5-10.1) 10/23/16 05:20 Total Bilirubin 0.4 mg/dL (0.2-1.0) D 10/23/16 05:20 AST 16 U/L (15-37) 10/23/16 05:20 ALT 30 U/L (12-78) D 10/23/16 05:20 Alkaline Phosphatase 72 U/L (45-117) 10/23/16 05:20 Total Protein 7.3 g/dl (6.4-8.2) 10/23/16 05:20 Albumin 4.1 g/dl (3.4-5.0) 10/23/16 05:20 Grossly within normal limits, non concerning Urine Test Results Urine Color Lt. yellow 10/23/16 07:33 Urine Appearance Clear 10/23/16 07:33 Urine pH 6.0 (5.0-8.0) 10/23/16 07:33 Urine Protein Negative (NEGATIVE) 10/23/16 07:33 Urine Glucose (UA) Negative (NEGATIVE) 10/23/16 07:33 Urine Ketones Negative (NEGATIVE) 10/23/16 07:33 Urine Blood Negative (NEGATIVE) 10/23/16 07:33 Urine Nitrite Negative (NEGATIVE) 10/23/16 07:33 Urine Bilirubin Negative (NEGATIVE) 10/23/16 07:33 Ur Leukocyte Esterase Negative (NEGATIVE) 10/23/16 07:33 Negative for signs of infection 10/23/16 09:32 Doppler negative for DVT 10/23/16 09:53 Discussed results with patient and informed him that while we didn't see anything concerning in his labs or imaging that he should follow up with his PCP for further evaluation of his bruising and back pain. Patient indicated that he was comfortable with the plan. *DC/Admit/Observation/Transfer Diagnosis at time of Disposition: Low back strain Qualifiers: Encounter type: initial encounter Qualified Code(s): S39.012A - Strain of muscle, fascia and tendon of lower back, initial encounter - Discharge Dispostion Admit: No - Patient Instructions Printed Discharge Instructions: DI for Back Strain or Sprain Additional Instructions: Thank you for trusting us with your health care today. Often in the emergency department we do not find the exact cause of a problem but focus on ruling out serious problems. The lab work and imaging we performed today did not show anything that was concerning. However, it is important that you follow up with a primary care physician for a more complete workup than we are able to do in the emergency department. To find a PCP you can call your insurance company or you can call our occupational safety specialist doctor, Dr. Pinto at ([phone]). As we discussed, you can take over the counter ibuprofen for the pain. If you develop any concerning signs including fever, confusion, headache that will not resolve with medication or significantly worsening back and neck pain, please return to the emergency department or call 911 immediately. - Attestations Physician Attestion: 10/23/16 10:20 I, Dr. Abdiel Doyle, attest that this document has been prepared under my direction and personally reviewed by me in its entirety. I further attest, that it accurately reflects all work, treatment, procedures and medical decision -making performed by me.
[2016-10-23 10:44] VITALS: BP 130/74; PULSE 73
== END 2016-10-23 10:40 | disposition home or self-care (01) ==
LOC: JER 03:46
PROC: 3E0333Z Introduction of Anti-inflammatory into Peripheral Vein, Percutaneous Approach (ICD-10-PCS; principal; 2016-10-23)
PROC: 3E0337Z Introduction of Electrolytic and Water Balance Substance into Peripheral Vein, Percutaneous Approach (ICD-10-PCS; 2016-10-23)
DX: S39.012A Strain of muscle, fascia and tendon of lower back, initial encounter (principal); X58.XXXA Exposure to other specified factors, initial encounter; Y93.89 Activity, other specified; Y92.9 Unspecified place or not applicable; Y99.9 Unspecified external cause status
CPT/HCPCS: 36415; 74176; 80053; 81003; 85025; 87040; 93971-TC; 99283-25

== ENCOUNTER 2019-05-03 10:44 | Emergency (ER) | payer OTHER ==
[2019-05-03 10:52] VITALS: BMI 26.5
--- NOTE | 2019-05-03 11:17 | PDOC ---
History of Present Illness - General Chief Complaint: Rash Stated Complaint: RASH Time Seen by Provider: 05/03/19 11:07 History Source: Patient - History of Present Illness Timing/Duration: reports: other Location: reports: extremities (L forearm) Past History - Past Medical History Allergies/Adverse Reactions: Allergies Allergy/AdvReac Type Severity Reaction Status Date / Time No Known Allergies Allergy Verified 10/23/16 04:40 Home Medications: Ambulatory Orders Clindamycin [Cleocin -] 450 mg PO TID #45 capsule 10/14/16 Cephalexin [Keflex] 500 mg PO Q6H #28 capsule 05/03/19 - Psycho Social/Smoking Cessation Hx Smoking History: Current every day smoker Number of Cigarettes Smoked Daily: 20 Information on smoking cessation initiated: No Hx Alcohol Use: No Drug/Substance Use Hx: Yes (MARIJUANA/ COCAINE) Substance Use Type: None Hx Substance Use Treatment: No Review of Systems - Review of Systems Constitutional: No: Chills, Fever, Malaise, Weakness Integumentary: Yes: Other (? cellulitis) *Physical Exam - Vital Signs Last Vital Signs Temp Pulse Resp BP Pulse Ox 97.8 F 63 16 100/62 98 05/03/19 10:49 05/03/19 10:49 05/03/19 10:49 05/03/19 10:49 05/03/19 10:49 - Physical Exam General Appearance: Yes: Appropriately Dressed. No: Apparent Distress HEENT: positive: Normal Voice Neck: positive: Supple Respiratory/Chest: negative: Respiratory Distress Extremity: positive: Other (~10x6cm tattoo to volar aspect of L forearm w/ mild swelling limited to site of tattoo w/ scattered erythema throughout tattoo, ? warmth, no sig ttp and no discharge) Integumentary: positive: Dry, Warm Neurologic: positive: Fully Oriented, Alert, Normal Mood/Affect Medical Decision Making - Medical Decision Making 05/03/19 11:13 54-year-old male, no significant history, here with concern for possible infection to site of tattoo. Patient states he had a large tattoo placed to volar aspect of L forearm 5 days ago and has been using Aquaphor to site. At some point noticed some swelling, increased pain and redness to site, that did not occur with his prior tattoos. Patient states the colors of his tattoo are only black-white and cleary but has noticed redness throughout the tattoo. No discharge. States he feels well otherwise with no weakness, malaise, fever or chills. Seen in [facility] and referred to ED see exam Possible mild infected tattoo to L FA No systemic signs or symptoms -Dose of ancef in ER as d/w Dr Albright and dc w/ strict return precautions, otherwise 48-hour follow-up Discharge - Discharge Information Problems reviewed: Yes Clinical Impression/Diagnosis: Cellulitis Qualifiers: Site of cellulitis: extremity Site of cellulitis of extremity: upper extremity Laterality: left Qualified Code(s): L03.114 - Cellulitis of left upper limb Condition: Good Disposition: HOME - Additional Discharge Information Prescriptions: Cephalexin [Keflex] 500 mg PO Q6H #28 capsule - Follow up/Referral - Patient Discharge Instructions Patient Printed Discharge Instructions: Cellulitis Additional Instructions: Take antibiotics as directed and return to ED for worsening of symptoms as discussed in ED Otherwise, return in 2 days for wound check - Post Discharge Activity
[2019-05-03] MEDS ORDERED: CEFAZOLIN 1 GM in DEXTROSE 5%-WATER - 50 ML IVPB ONE (11:20)
[2019-05-03] MEDS ORDERED: CEFAZOLIN 1 GM/D5W 1 GM/50 ML BAG ONE (11:38)
--- NOTE | 2019-05-03 11:38 | PDOC ---
*Physical Exam - Vital Signs Last Vital Signs Temp Pulse Resp BP Pulse Ox 97.8 F 63 16 100/62 98 05/03/19 10:49 05/03/19 10:49 05/03/19 10:49 05/03/19 10:49 05/03/19 10:49 Medical Decision Making - Medical Decision Making 05/03/19 11:34 The patient was seen and evaluated in conjunction with MELVIN Collazo under my direct supervision, ancillary studies were reviewed. I independently interviewed and evaluated the patient and I agree with the plan as outlined by MELVIN Collazo . 54-year-old gentleman no significant past medical history presenting with some redness around a tattoo. The patient's tattoo was placed on his left forearm on Sunday the patient has noted some very mild erythema and swelling, he went to urgent care was sent to the ED for further evaluation. The patient denies any systemic complaints including fever, chills, generalized weakness, he does note that there was some mild redness on the tattoo and it was a tight sensation. He notes that sometimes there is some translucence discharge denies any purulent opaque/cloudy discharge. On exam the patient is well-appearing, no distress the patient's vitals are normal. On his left forearm exam he has the Tattooe in place on the central areas where there is significant detail work there is some mild erythema that is fairly localized to the area of detail, there is also very mildly increased warmth, however there is no areas of induration, fluctuance, significant tenderness. The area is not hot to the touch and there is also no crepitus. There is no surrounding redness around the tattoo itself. I suspect that the patient's erythema is secondary to inflammation from that tattoo itself. Consider very mild cellulitis, will treat the patient with oral antibiotics. I discussed with the patient return precautions I also instructed the patient to take pictures of his tattoo to follow the area of redness with strict return precautions for any worsening swelling, redness, puruplent discharge, streaking, fevers or other signs of infection. I instructed the patient to continue to apply bacitracin over his tattoo. Discharge - Discharge Information Problems reviewed: Yes Clinical Impression/Diagnosis: Cellulitis Qualifiers: Site of cellulitis: extremity Site of cellulitis of extremity: upper extremity Laterality: left Qualified Code(s): L03.114 - Cellulitis of left upper limb Condition: Good Disposition: HOME - Admission No - Additional Discharge Information Prescriptions: Cephalexin [Keflex] 500 mg PO Q6H #28 capsule - Follow up/Referral - Patient Discharge Instructions Patient Printed Discharge Instructions: Cellulitis Additional Instructions: Take antibiotics as directed and return to ED for worsening of symptoms as discussed in ED Otherwise, return in 2 days for wound check - Post Discharge Activity
[2019-05-03 12:19] VITALS: BP 110/74; PULSE 60; TEMP 97.4
== END 2019-05-03 12:27 | disposition home or self-care (01) ==
LOC: JER 10:44
DX: L03.114 Cellulitis of left upper limb (principal); L81.8 Other specified disorders of pigmentation; F17.210 Nicotine dependence, cigarettes, uncomplicated
CPT/HCPCS: 99284-25

== ENCOUNTER 2021-03-17 04:13 | Day surgery (SDC) | payer OTHER ==
[2021-03-16 10:46] VITALS: BMI 27.9
[2021-03-17 08:22] VITALS: TEMP 97.5
[2021-03-17 11:44] VITALS: BP 130/91; PULSE 75
== END 2021-03-17 11:44 | disposition home or self-care (01) ==
LOC: JASU-ENDO 04:13
PROVIDERS: ATTEND Internal Medicine Gastroenterology
PROC: 0DJD8ZZ Inspection of Lower Intestinal Tract, Via Natural or Artificial Opening Endoscopic (ICD-10-PCS; principal; 2021-03-17 08:00)
DX: Z12.11 Encounter for screening for malignant neoplasm of colon (principal); K64.8 Other hemorrhoids
CPT/HCPCS: 74019-TC-FY